=== PATIENT | female | born 1965 | race Caucasian/White ===

== ENCOUNTER 2018-01-25 13:26 | Emergency (ER) | END 2018-01-25 16:28 | disposition home or self-care (01) ==

== ENCOUNTER 2019-04-03 18:33 | Emergency (ER) | payer MEDICAID, OTHER ==
[~2019-04-03] VITALS: Ht 162.6 cm; Wt 62.4 kg
[~2019-04-03 18:33] MED LIST: ALBU8.5H8 INH; AZIT250T PO; CEPH-443 PO; IBUP-1542 PO; PRED20TA PO; SULF1TAB31 PO
[2019-04-03 18:34] VITALS: Ht 162.6 cm; Wt 62.4 kg
[2019-04-03] MEDS ORDERED: SOD CHLORIDE 0.9% 500 ML IV STA (19:38)
[2019-04-03] MEDS ORDERED: ALBUTEROL 0.083% (NEB) 2.5 MG/3 ML AMP NEB STA (19:38)
[2019-04-03] MEDS ORDERED: IPRATROPIUM (NEB) 0.5 MG/2.5 ML AMP NEB STA (19:38)
[2019-04-03] MEDS ORDERED: DEXAMETHASONE 10 MG/ML 1 ML INJ IV STA (19:38)
[2019-04-03 21:38] VITALS: BP 114/58; PULSE 82; RESP 17
== END 2019-04-03 21:38 | disposition home or self-care (01) ==
LOC: FTE 18:33
DX: J44.1 Chronic obstructive pulmonary disease with (acute) exacerbation (principal); Z87.891 Personal history of nicotine dependence
CPT/HCPCS: 93005; 94664; 96374; J1100; J7040; Z7502; Z7610